=== PATIENT | female | born 1965 | race Caucasian/White ===

== ENCOUNTER 2021-12-29 14:05 | Outpatient (CLI) | payer BC, SELFPAY ==
--- NOTE | ~2021-12-29 | US_ITS ---
EXAMINATION: US soft tissue LE RT DATE: 12/29/2021 14:38 INDICATION: Swelling and palpable mass at the lateral right ankle TECHNIQUE: Multiple grayscale and Doppler ultrasound images of the region of concern at the lateral r ight ankle were obtained. COMPARISON: None FINDINGS/IMPRESSION: Soft tissue swelling with subcutaneous edema at the region of concern. No abnormal masses or fluid co llections identified. Reviewed, dictated and finalized at location A. FINISHER
== END 2021-12-29 14:06 | disposition home or self-care (01) ==
PROVIDERS: PCP Internal Medicine
DX: R22.41 Localized swelling, mass and lump, right lower limb (principal)
CPT/HCPCS: 76882

== ENCOUNTER 2025-05-05 10:16 | Outpatient (CLI) | payer BC, SELFPAY ==
--- NOTE | ~2025-05-05 | XR_ITS ---
EXAM/ PROCEDURE: XR hip LT min 2V - 05/05/2025 10:19 CDT HISTORY: 60 years old Female with Lt hip pain x 2 wks w/o injury COMPARISON: None available TECHNIQUE: Four view(s) FINDINGS/ IMPRESSION: There are no fractures or dislocations.Joint space narrowing, subchondral sclerosis, subchondral cyst formation and osteophyte formation, compatible with moderate osteoarthritis.. Intact hardware partially visualized in right hemipelvis. Multiple phleboliths are seen in the pelvis . Reviewed, dictated and finalized at location A.
== END 2025-05-05 10:17 | disposition home or self-care (01) ==
PROVIDERS: PCP Chiropractor; Visit Provider Chiropractor
DX: M25.552 Pain in left hip (principal); Z96.7 Presence of other bone and tendon implants
CPT/HCPCS: 73502

== ENCOUNTER 2025-07-15 11:02 | Outpatient (CLI) | payer BC, SELFPAY ==
--- NOTE | ~2025-07-15 | MR_ITS ---
EXAMINATION: MR hip LT wo con DATE: 07/15/2025 12:05 INDICATION: Unilateral primary osteoarthritis of the left hip TECHNIQUE: Magnetic resonance imaging (MRI) of the left hip was performed without intravenous contrast. Sequences included full-field axial PD-weighted FS FSE and T1-weighted FSE, coronal of the pelvis with PD-weighted FS FSE, T2- weighted FSE and T1-weighted FSE, small field of view of the left hip with axial PD-weighted FS FSE, sagittal PD-weighted FS FSE, coronal PD-weighted FS FSE and coronal T2 weighted FSE. Additional radial T1-weighted FGR oriented orthogonal to the acetabular rim were obtained for evaluation of the labrum. COMPARISON: Left hip radiographs dated 05/05/2025 FINDINGS: Prominent metallic magnetic field artifact associated with a couple screws in the right supra-acetabular region with suggestion of an old healed right acetabular fracture. Additional old healed fracture at the right inferior pubic ramus. Osteoarthritis of the bilateral hips, mild to moderate on the right and moderate to severe on the left with moderate to severe nonuniform joint space narrowing most prominent at the cephalad, anterosuperior to superolateral aspects of the joint space. There is prominent marrow edema and decreased T1 signal surrounding a shallow concavity at the apex of the left femoral head which could represent either a impaction, stress or insufficiency fracture or a collapsed osteochondral lesion in the setting of chronic osteonecrosis. Likely reactive synovitis and small left hip joint effusion. There is complex tearing of the anterosuperior and posterior superior to posterior aspect of the left acetabular labrum relatively sparing a small portion of normal-appearing labrum near the 12:00 position. Mild to moderate lower lumbar spondylosis. Prominent large Schmorl's node along the right-sided the superior endplate of L4. Normal and symmetric muscle bulk and signal in the pelvis and visualized proximal thighs. The iliopsoas, gluteal and proximal hamstring tendons are normal. The uterus is not identified and has likely been surgically resected. Partially decompressed bladder is unremarkable. There appears be diffuse wall thickening along the visualized colon which demonstrates a relatively haustral pattern suspicious for chronic colitis such as in the setting of ulcerative colitis. No free fluid in the pelvis. No pathologically enlarged pelvic/inguinal lymphadenopathy. IMPRESSION: 1. Moderate to severe osteoarthritis at the left hip. This appears progressed since the prior radiographs and may be be secondary to a shallow concavity along the articular cortex at the apex of the femoral head is likely related to chronic osteonecrosis with collapse of the articular surface with differential including less likely sequela of an impaction, stress or insufficiency fracture. 2. Old healed right inferior pubic ramus fracture and old healed right acetabular fracture with screw fixation and mild to moderate secondary osteoarthritis at the right hip. 3. Diffuse wall thickening of the visualized colon which appears to demonstrate a relatively a haustral pattern suspicious for chronic colitis such as in the setting of ulcerative colitis or Crohn's disease. The relative uniformity extending to the distalmost colon favors the former. Reviewed, dictated and finalized at location A. IMPRESSION: 1. Moderate to severe osteoarthritis at the left hip. This appears progressed s anabell the prior radiographs and may be be secondary to a shallow concavity along the articular cortex at the apex of the femoral head is likely related to miner helper rosmery osteonecrosis with collapse of the articular surface with differential incl uding less likely sequela of an impaction, stress or insufficiency fracture. 2. Old healed right inferior pubic ramus fracture and old healed right acetabul ar fracture with screw fixation and mild to moderate secondary osteoarthritis a t the right hip. 3. Diffuse wall thickening of the visualized colon which appears to demonstrate a relatively a haustral pattern suspicious for chronic colitis such as in the setting of ulcerative colitis or Crohn's disease. The relative uniformity exten ding to the distalmost colon favors the former.
== END 2025-07-15 11:03 | disposition home or self-care (01) ==
PROVIDERS: PCP Orthopaedic Surgery; Visit Provider Orthopaedic Surgery
DX: R93.89 Abnormal findings on diagnostic imaging of other specified body structures (principal); M16.12 Unilateral primary osteoarthritis, left hip; M16.11 Unilateral primary osteoarthritis, right hip; Z87.81 Personal history of (healed) traumatic fracture; Z96.698 Presence of other orthopedic joint implants
CPT/HCPCS: 73721